=== PATIENT | male | born 1945 | race Caucasian/White ===

== ENCOUNTER 2019-07-19 11:18 | Inpatient (IN) | payer MEDICARE, BC ==
[~2019-07-19] VITALS: Ht 175.3 cm; Wt 55.9 kg
[2019-07-27 11:04] VITALS: BP 95/55
== END 2019-07-27 11:40 | disposition home or self-care (01) | DRG 885 ==
LOC: ER 11:18 → GPS 13:46 → GPSOV3 07-25 18:34
PROVIDERS: ADMIT Psychiatry & Neurology Psychiatry; ATTEND Registered Nurse
DX: F33.2 Major depressive disorder, recurrent severe without psychotic features (principal); R17 Unspecified jaundice; S00.83XA Contusion of other part of head, initial encounter; Y33.XXXA Other specified events, undetermined intent, initial encounter; Y92.89 Other specified places as the place of occurrence of the external cause; E86.0 Dehydration; F41.9 Anxiety disorder, unspecified; G93.89 Other specified disorders of brain; I10 Essential (primary) hypertension; Z66 Do not resuscitate; F68.11 Factitious disorder imposed on self, with predominantly psychological signs and symptoms
CPT/HCPCS: 36415; 70450; 70486; 80307; 84443; 85025; 93005; A4663; G0480; G0480-TC